=== PATIENT | male | born 2005 | race Caucasian/White ===

== ENCOUNTER 2024-08-26 21:18 | Emergency (ER) | payer SELFPAY ==
[2024-08-26] MEDS: Erythromycin Base 0.5% Ophth Oint 1 GM Tube EYELF ONE (22:17)
[2024-08-26] MEDS: Fluorescein 1 MG Ophth Strip EYELF ONE (22:18)
[2024-08-26] MEDS: Proparacaine 0.5% Ophth Soln 15 ML Bottle EYELF ONE (22:19)
== END 2024-08-26 22:35 | disposition home or self-care (01) ==
LOC: JD.ED 21:18
DX: T15.02XA Foreign body in cornea, left eye, initial encounter (principal); W44.8XXA Other foreign body entering into or through a natural orifice, initial encounter
CPT/HCPCS: 99283; A9270; J3490